=== PATIENT | male | born 1940 | race African-American/Black ===

== ENCOUNTER 2018-05-14 06:39 | Inpatient (IN) | payer OTHER, MEDICARE ==
[~2018-05-14] VITALS: Ht 175.3 cm; Wt 57.6 kg
[2018-05-14] MEDS ORDERED: SODIUM CHLORIDE 0.9% 1,000 ML IV ONE (06:58)
[2018-05-14] MEDS ORDERED: ONDANSETRON HCL 4MG/2ML VIAL IV ONE (07:15)
[2018-05-14] MEDS ORDERED: FENTANYL CITRATE/PF 50MCG/ML 2ML VIAL IV ONE (07:15)
[2018-05-14 08:51] LABS: BG BASE EXCESS -2.1 mmol/L (-2.0-2.0); BG CARBOXYHEMOGLOBIN 1.1 % (0.5-1.5); BG DEOXYHEMOGLOBIN 2.7 % (0.0-5.0); BG FRACTION INSPIRED OXYGEN 21; BG HCO3 ACT 20.7 mmol/L (22.0-26.0); BG METHEMOGLOBIN 0.2 % (0.0-1.5); BG OXYGEN SATURATION 97.3 % (92.0-98.5); BG PCO2 29.6 mmHg (35.0-45.0); BG PH 7.463 (7.350-7.450); BG PO2 93.1 mmHg (75.0-100.0); BG SAMPLE SITE LEFT RADIAL; BG TOTAL HEMOGLOBIN 12.3 g/dL (12.0-18.0); BG VENT MODE ROOM AIR
[2018-05-14 08:57] LABS: HEMOGLOBIN. 11.6 g/dL (14.0-18.0); MEAN CORPUSCULAR HEMOGLOBIN 32.3 pg (28.0-32.0); MEAN CORPUSCULAR VOLUME 97.1 fL (80.0-94.0); MEAN PLATELET VOLUME 8.3 fl (7.4-10.4); PLATELET 149 x1000/uL (130-400); RED CELL DISTRIBUTION WIDTH 17.5 % (11.6-14.6)
[2018-05-14 09:03] LABS: CHLORIDE 100 mEq/L (98-107)
[2018-05-14 09:05] LABS: AMMONIA 43 uMol/L (<32)
[2018-05-14 09:08] LABS: ETHANOL BLOOD < 10 mg/dL
[2018-05-14 09:11] LABS: INR 1.8; PARTIAL THROMBOPLASTIN TIME 31.3 sec (23.4-31.0); PROTHROMBIN TIME 18.4 sec (9.1-11.1)
[2018-05-14 09:12] LABS: CREATINE KINASE 77 IU/L (39-308)
[2018-05-14 09:18] LABS: BETA HYDROXYBUTYRATE 1.2 mMol/L (0.0-0.3)
[2018-05-14 09:38] LABS: PLATELET ESTIMATE NORMAL
[2018-05-14] MEDS ORDERED: ONDANSETRON HCL 4MG/2ML VIAL IV PRN (10:00)
[2018-05-14] MEDS ORDERED: DEXTROSE 50% WATER 50ML SYRINGE IV PRN (10:00)
[2018-05-14] MEDS: MORPHINE SULFATE 4 MG/ML CPJ (NOT FOR IM USE) IV PRN (11:08)
[2018-05-14 12:00] VITALS: BP_SYST 123; BP_SYST 137; BP_DIAS 77; BP_DIAS 93
[2018-05-14] MEDS: BLOOD SUGAR DIAGNOSTIC STRIP TEST SCH ×3 (12:40→20:57)
[2018-05-14] MEDS: DEXT 5%/0.45% NACL 1000ML 1,000 ML IV SCH (15:43)
[2018-05-14] MEDS: LEVOFLOXACIN 500MG PREMIX 100 ML IV SCH (15:43)
[2018-05-14] MEDS: INSULIN LISPRO 100 UNITS/ML SUBCUT SCH ×3 (15:46→20:56)
[2018-05-14 16:00] VITALS: BP 114/74
[2018-05-14] MEDS: LACTULOSE 20G/30ML UDC PO SCH (18:14)
[2018-05-14] MEDS: PANTOPRAZOLE SODIUM 40 MG/VIAL IV SCH (18:15)
[2018-05-14] MEDS: AMLODIPINE 5MG TABLET PO SCH ×2 (18:15→20:52)
[2018-05-14] MEDS: MEGESTROL ACETATE 20MG TABLET PO SCH ×2 (18:26→23:35)
[2018-05-14 20:00] VITALS: BP 109/77
[2018-05-14 21:35] LABS: HEPATITIS B SURFACE ANTIGEN NEGATIVE
[2018-05-14 22:02] LABS: HEPATITIS B CORE AB IGM NEGATIVE
[2018-05-14 22:04] LABS: HEPATITIS A AB IGM NEGATIVE (NEGATIVE)
[2018-05-15] VITALS (7 sets, daily range): BP systolic 95–133; BP diastolic 58–85
[2018-05-15] MEDS: MORPHINE SULFATE 4 MG/ML CPJ (NOT FOR IM USE) IV PRN (04:25)
[2018-05-15 05:41] LABS: HEMATOCRIT. 34.4 % (42.0-52.0); HEMOGLOBIN. 11.5 g/dL (14.0-18.0); MEAN CORPUSCULAR HEMOGLOBIN 32.9 pg (28.0-32.0); MEAN CORPUSCULAR VOLUME 98.3 fL (80.0-94.0); MEAN PLATELET VOLUME 8.6 fl (7.4-10.4); PLATELET 138 x1000/uL (130-400); RED CELL DISTRIBUTION WIDTH 18.4 % (11.6-14.6)
[2018-05-15 05:57] LABS: CHLORIDE 102 mEq/L (98-107)
[2018-05-15] MEDS: MEGESTROL ACETATE 20MG TABLET PO SCH ×3 (06:00→17:48)
[2018-05-15] MEDS: DEXT 5%/0.45% NACL 1000ML 1,000 ML IV SCH ×2 (06:28→11:34)
[2018-05-15 06:31] LABS: AMMONIA 108 uMol/L (<32)
[2018-05-15] MEDS: BLOOD SUGAR DIAGNOSTIC STRIP TEST SCH ×3 (06:31→17:29)
[2018-05-15] MEDS: INSULIN LISPRO 100 UNITS/ML SUBCUT SCH ×3 (08:10→17:30)
[2018-05-15] MEDS: PANTOPRAZOLE SODIUM 40 MG/VIAL IV SCH (11:34)
[2018-05-15] MEDS: LEVOFLOXACIN 500MG PREMIX 100 ML IV SCH (11:40)
[2018-05-15] MEDS ORDERED: ENOXAPARIN 60MG/0.6ML SYR SUBCUT SCH (12:00)
[2018-05-15] MEDS: AMLODIPINE 5MG TABLET PO SCH ×2 (12:18→20:30)
[2018-05-15] MEDS: LACTULOSE 20G/30ML UDC PO SCH (12:40)
[2018-05-15 14:21] LABS: PLATELET ESTIMATE NORMAL
[2018-05-15] MEDS ORDERED: LACTULOSE 20G/30ML UDC PO SCH (17:00)
== END 2018-05-15 20:40 | disposition short-term general hospital (02) | DRG 871 ==
LOC: ER 06:39 → 7WST 09:03 → ENRESERV 09:15 → EDBEDREQ 09:18
PROVIDERS: ADMIT Internal Medicine; ATTEND Internal Medicine
DX: A41.9 Sepsis, unspecified organism (principal); G92 Toxic encephalopathy; E43 Unspecified severe protein-calorie malnutrition; I50.41 Acute combined systolic (congestive) and diastolic (congestive) heart failure; C25.9 Malignant neoplasm of pancreas, unspecified; C78.7 Secondary malignant neoplasm of liver and intrahepatic bile duct; D68.9 Coagulation defect, unspecified; E87.1 Hypo-osmolality and hyponatremia; I82.412 Acute embolism and thrombosis of left femoral vein; Z68.1 Body mass index [BMI] 19.9 or less, adult; E11.649 Type 2 diabetes mellitus with hypoglycemia without coma; I11.0 Hypertensive heart disease with heart failure; D64.9 Anemia, unspecified; E78.5 Hyperlipidemia, unspecified
CPT/HCPCS: 36415; 36600; 70450; 71045; 76700; 80053; 80061; 80076; 80307; 80329; 82010; 82140; 82375; 82550; 82805; 82962; 83690; 83880; 84443; 84484; 85025; 85610; 85730; 86705; 86709; 86803; 87040; 87340; 93005; 93970; 96361; 96374; 96375; 99291; C1893; C9113; G0482; J1650; J1815; J1956; J2270; J2405; J3010; J3490; J7030